=== PATIENT | female | born 1975 | race Caucasian/White ===

== ENCOUNTER 2018-05-24 10:38 | Outpatient (CLI) | payer BC | END 2018-05-24 10:39 | disposition home or self-care (01) | LOC: BICMAMMO 10:38 | PROVIDERS: ATTEND Obstetrics & Gynecology | DX: Z12.31 Encounter for screening mammogram for malignant neoplasm of breast (principal); Z80.3 Family history of malignant neoplasm of breast | CPT/HCPCS: 77063; 77067 ==

== ENCOUNTER 2018-05-30 07:51 | Outpatient (CLI) | payer BC | END 2018-05-30 07:52 | disposition home or self-care (01) | LOC: BICULT 07:51 | PROVIDERS: ATTEND Obstetrics & Gynecology | DX: R92.2 Inconclusive mammogram (principal) ==

== ENCOUNTER 2018-12-07 08:48 | Outpatient (CLI) | payer BC ==
--- NOTE | 2018-12-07 10:46 | ULT ---
ULTRASOUND LEFT BREAST: Date: 12/07/18 INDICATION: Ultrasound left breast performed to assess asymmetric density in the outer mid left breast region. FINDINGS/IMPRESSION: No sonographic abnormality identified. The mammogram findings are stable from films dating to 2017. No sonographic abnormality. Recommend patient be returned to routine mammogram follow-up. Final BIRADS is a BIRADS Category 2 - benign findings. POS: JASMIN
== END 2018-12-07 08:49 | disposition home or self-care (01) ==
LOC: BICMAMMO 08:48
PROVIDERS: ATTEND Obstetrics & Gynecology
DX: R92.8 Other abnormal and inconclusive findings on diagnostic imaging of breast (principal); R92.2 Inconclusive mammogram; Z80.3 Family history of malignant neoplasm of breast
CPT/HCPCS: G0279

== ENCOUNTER 2019-05-22 13:51 | Outpatient (CLI) | payer BC ==
[2019-05-22 14:41] LABS: Estimated GFR-MDRD - POC Greater than 90
--- NOTE | 2019-05-22 15:45 | MRI ---
MRI Brain W WO Con: 05/22/2019 12:00 AM CLINICAL HISTORY: Vertigo. COMPARISON: None. FINDINGS: Extra axial spaces: Normal in size and morphology for the patient's age. Acute infarction: None. Ventricular system: Normal in size and morphology for the patient's age. Basal cisterns: Normal. Cerebral parenchyma: Normal. Midline shift: None. Cerebellum: Normal. Brainstem: Normal. Paranasal sinuses:Bilateral mastoid fluid Intraaxial Enhancement: None IMPRESSION:No acute intracranial abnormality.
== END 2019-05-22 13:52 | disposition home or self-care (01) ==
LOC: BICMRI 13:51
PROVIDERS: ATTEND Family Medicine
DX: R42 Dizziness and giddiness (principal); R27.0 Ataxia, unspecified; R26.89 Other abnormalities of gait and mobility
CPT/HCPCS: 70553; 82565

== ENCOUNTER 2021-09-03 08:29 | Outpatient (CLI) | payer BC ==
[2021-09-03 09:08] LABS: Estimated GFR-MDRD - POC Greater than 90
[2021-09-03] MEDS ORDERED: Magnevist 469MG/ML 20 ML VIAL ONE (10:01)
== END 2021-09-03 08:30 | disposition home or self-care (01) ==
LOC: BICMRI 08:29
PROVIDERS: ATTEND Orthopaedic Surgery
DX: M25.561 Pain in right knee (principal)
CPT/HCPCS: 82565

== ENCOUNTER 2021-10-04 08:53 | Outpatient (CLI) | payer BC ==
[2021-10-04 10:20] LABS: #Eosinphils 0.2 10x3/uL (0.0-0.5); #Monocytes 0.3 10x3/uL (0.0-1.1); #Neutrophils 5.8 10x3/uL (1.5-8.4); %Basophils 0.4 % (0.0-2.0); %Lymphocytes 25.2 % (18.0-47.0); %Monocytes 3.9 % (0.0-10.0); %Neutrophils 68.3 % (40.0-75.0); Hemoglobin 13.6 g/dL (12.0-15.5); Mean Corpuscular HGB CONC 33.8 g/dL (32.0-36.0); Mean Corpuscular Hemoglobin 29.8 pg (27.0-33.0); Mean Platelet Volume 10.2 fl (7.4-10.4); Platelet Count 285 10x3/uL (150-450); RBC Distribution Width 13.4 % (11.5-14.5); Red Blood Cell (RBC) Count 4.57 10x6/uL (3.90-5.03); White Blood Cell (WBC) Count 8.5 10x3/uL (3.5-10.5)
[2021-10-04 22:00] LABS: SARS-CoV-2 PCR by NAA Not Detected (NotDetected)
== END 2021-10-04 08:54 | disposition home or self-care (01) ==
LOC: LABBT 08:53
PROVIDERS: ATTEND Orthopaedic Surgery
DX: Z01.812 Encounter for preprocedural laboratory examination (principal); M25.861 Other specified joint disorders, right knee; Z20.822 Contact with and (suspected) exposure to COVID-19
CPT/HCPCS: 85025; U0003; U0005

== ENCOUNTER 2021-10-07 06:27 | Day surgery (SDC) | payer BC ==
[2021-10-05 12:35] VITALS: BMI 39.4
[2021-10-07] MEDS ORDERED: Midazolam HCl 2 mg/2 ml Vial ONE (06:34)
[2021-10-07] MEDS ORDERED: Fentanyl 100 MCG/2 ML VIAL ONE (06:34)
[2021-10-07] MEDS ORDERED: HYDROmorphone 0.5 MG/0.5 ML SYRINGE ONE (06:34)
[2021-10-07] MEDS ORDERED: ceFAZolin 2 GM/DEX 5% 100 ML BAG ONE (06:53)
[2021-10-07] MEDS ORDERED: Lidocaine 1% PF 5 ML VIAL ONE (07:30)
[2021-10-07] MEDS ORDERED: Ondansetron PF 4 MG/2 ML Vial ONE (07:30)
[2021-10-07] MEDS ORDERED: PROPOFOL 200 MG/20 ML VIAL ONE (07:30)
[2021-10-07] MEDS ORDERED: Dexamethasone 20 MG/5 ML VIAL ONE (07:30)
[2021-10-07] MEDS ORDERED: Lidocaine 1% w/Epinephrine 1:100K 20 ML VIAL ONE (08:03)
== END 2021-10-07 10:00 | disposition home or self-care (01) ==
LOC: SDC 06:27
PROVIDERS: ATTEND Orthopaedic Surgery
PROC: 0JBN0ZZ Excision of Right Lower Leg Subcutaneous Tissue and Fascia, Open Approach (ICD-10-PCS; principal; 2021-10-07)
DX: L92.8 Other granulomatous disorders of the skin and subcutaneous tissue (principal); J45.909 Unspecified asthma, uncomplicated; E11.319 Type 2 diabetes mellitus with unspecified diabetic retinopathy without macular edema; E66.3 Overweight; Z68.39 Body mass index [BMI] 39.0-39.9, adult; Z79.84 Long term (current) use of oral hypoglycemic drugs; Z79.899 Other long term (current) drug therapy; Z91.040 Latex allergy status
CPT/HCPCS: 88305; 88312; 89060; J1100; J1170; J2250; J2405; J2704; J3010

== ENCOUNTER 2024-05-23 13:04 | Outpatient (CLI) | payer BC | END 2024-05-23 13:05 | disposition home or self-care (01) | LOC: BICMAMMO 13:04 | PROVIDERS: ATTEND Family Medicine | DX: Z12.31 Encounter for screening mammogram for malignant neoplasm of breast (principal); Z80.3 Family history of malignant neoplasm of breast | CPT/HCPCS: 77063; 77067 ==

== ENCOUNTER 2025-11-04 09:36 | Outpatient (CLI) | payer BC | END 2025-11-04 09:37 | disposition home or self-care (01) | LOC: BICMAMMO 09:36 | PROVIDERS: ATTEND Family Medicine | DX: Z12.31 Encounter for screening mammogram for malignant neoplasm of breast (principal); Z80.3 Family history of malignant neoplasm of breast | CPT/HCPCS: 77063; 77067 ==